=== PATIENT | female | born 2000 | race Caucasian/White ===

== ENCOUNTER 2019-01-17 01:45 | Emergency (ER) | payer SELFPAY ==
[2019-01-17] MEDS ORDERED: Albuterol/Ipratropium 3.0-0.5 MG/3 ML Neb Soln ONE (01:46)
[2019-01-17] MEDS ORDERED: Albuterol/Ipratropium 3.0-0.5 MG/3 ML Neb Soln NEB ONE ×2 (01:51→02:39)
[2019-01-17] MEDS ORDERED: methylPREDNISolone Sodium Succinate 125 MG/2 ML SDV IM ONE (01:57)
--- NOTE | 2019-01-17 02:02 | EDM.PDOC ---
ED HPI GENERAL MEDICAL PROBLEM - General Chief Complaint: Respiratory Problem Stated Complaint: SOB Time Seen by Provider: 01/17/19 01:51 - History of Present Illness INITIAL COMMENTS - FREE TEXT/NARRATIVE: HISTORY AND PHYSICAL: History of present illness: The patient is a 18-year-old female with a known history of asthma was here visiting from [place] and says that she has felt more short of breath and has had a cough productive of phlegm but the last 36 hours. The patient shows that she has an inhaler and nebulizer treatments at home and told nursing that she just neglected to bring that with her on this trip. On my evaluation with her she stated that she ran out of her prescription and did not refill it and then made the trip here. She denies smoking and any drug use and has not had a fever but has had some nausea and some loose stools. She has no abdominal pain and feels short of breath and feels like she is wheezing. She has been eating and drinking normally and denies Review of systems: As per history of present illness and below otherwise all systems reviewed and negative. Past medical history: As per history of present illness and as reviewed below otherwise noncontributory. Surgical history: As per history of present illness and as reviewed below otherwise noncontributory. Social history: No reported history of drug or alcohol abuse. Family history: As per history of present illness and as reviewed below otherwise noncontributory. Physical exam: General: Well-developed well-nourished mildly overweight female who is nontoxic and vital signs are noted by me. She is not breathless on my evaluation and she is currently on a DuoNeb HEENT: Atraumatic, normocephalic, pupils reactive, negative for conjunctival pallor or scleral icterus, mucous membranes moist, throat clear, neck supple, nontender, trachea midline. Lungs: Clear to auscultation with expiratory wheezing right greater than left side but no worker breathing or stridor, breath sounds equal bilaterally, chest nontender. Heart: S1S2, regular rhythm and tachycardic rate on my evaluation Abdomen: Soft, nondistended, nontender. NABS Pelvis: Deferred Genitourinary: Deferred. Rectal: Deferred. Extremities: Atraumatic, negative for cords or calf pain. Neurovascular unremarkable. Neuro: Awake, alert, oriented. Cranial nerves II through XII unremarkable. Cerebellum unremarkable. Motor and sensory unremarkable throughout. Exam nonfocal. Diagnostics: Chest x-ray influenza Therapeutics: Snow bowens Solu-Medrol spacer and spacer teaching After chintano kwan patient's O2 sat is 95% and she is moving air much better still with some fine expiratory wheezing throughout all lung cline. She says she does feel better and she is now telling me that she is staying with her boyfriend's sister while visiting here and she is being exposed to a dog which she is allergic to which she thinks is the trigger for her asthma attack. Her boyfriend also smokes marijuana but she says she is used to that smell Impression: Acute asthma exacerbation Definitive disposition and diagnosis as appropriate pending reevaluation and review of above. mid chest Pain Score (Numeric/FACES): 8 - Related Data Allergies Allergy/AdvReac Type Severity Reaction Status Date / Time No Known Allergies Allergy Verified 01/17/19 01:53 Home Meds: Home Meds Albuterol Sulfate 1 ampule INH ASDIRECTED PRN 01/17/19 [History] Albuterol [Ventolin HFA] 2 puff INH ASDIRECTED PRN 01/17/19 [History] Fluticasone/Salmeterol [Advair 250-50 Diskus] 1 each INH ASDIRECTED 01/17/19 [ History] Montelukast [Singulair] 10 mg PO DAILY 01/17/19 [History] Past Medical History Respiratory History: Reports: Asthma Neurological History: Reports: Other (See Below) Other Neuro History: pseudotumor cerebri (Intercranial HTN) Social & Family History - Family History Family Medical History: Noncontributory - Tobacco Use Smoking Status *Q: Never Smoker - Caffeine Use Caffeine Use: Reports: None - Recreational Drug Use Recreational Drug Use: No ED ROS GENERAL - Review of Systems Review Of Systems: ROS reveals no pertinent complaints other than HPI. ED EXAM, GENERAL - Physical Exam Exam: See Below (See dictation) Course - Vital Signs Last Recorded V/S: Last Vital Signs Temp 36.3 C 01/17/19 01:49 Pulse 130 H 01/17/19 02:37 Resp 24 H 01/17/19 01:49 BP 120/84 01/17/19 01:49 Pulse Ox 96 01/17/19 02:37 - Orders/Labs/Meds Orders: Active Orders 24 hr Category Date Time Status EKG Documentation Completion [RC] STAT Care 01/17/19 02:31 Active RT Aerosol Therapy [RC] ASDIRECTED Care 01/17/19 01:51 Active RT Aerosol Therapy [RC] ASDIRECTED Care 01/17/19 02:39 Ordered Meds: Medications Discontinued Medications Generic Name Dose Route Start Last Admin Trade Name Gemma PRN Reason Stop Dose Admin Albuterol/Ipratropium Confirm 01/17/19 01:46 01/17/19 01:52 Duoneb 3.0-0.5 Mg/3 Ml Administered 01/17/19 01:47 Not Given Dose 3 ml .ROUTE .STK-MED ONE Albuterol/Ipratropium 3 ml 01/17/19 01:51 01/17/19 01:52 Duoneb 3.0-0.5 Mg/3 Ml NEB 01/17/19 01:52 3 ml ONETIME ONE Administration Albuterol/Ipratropium 3 ml 01/17/19 02:39 Duoneb 3.0-0.5 Mg/3 Ml NEB 01/17/19 02:40 ONETIME ONE Methylprednisolone Sodium Succinate 125 mg 01/17/19 01:57 01/17/19 02:03 Solu-Medrol IM 01/17/19 01:58 125 mg ONETIME ONE Administration Departure - Departure Time of Disposition: 02:41 Disposition: Home, Self-Care 01 Condition: Good Clinical Impression: Acute asthma - Discharge Information Forms: ED Department Discharge Additional Instructions: The following information is given to patients seen in the emergency department who are being discharged to home. This information is to outline your options for follow-up care. We provide all patients seen in our emergency department with a follow-up referral. The need for follow-up, as well as the timing and circumstances, are variable depending upon the specifics of your emergency department visit. If you don't have a primary care physician on staff, we will provide you with a referral. We always advise you to contact your personal physician following an emergency department visit to inform them of the circumstance of the visit and for follow-up with them and/or the need for any referrals to a consulting specialist. The emergency department will also refer you to a specialist when appropriate. This referral assures that you have the opportunity for followup care with a specialist. All of these measure are taken in an effort to provide you with optimal care, which includes your followup. Under all circumstances we always encourage you to contact your private physician who remains a resource for coordinating your care. When calling for followup care, please make the office aware that this follow-up is from your recent emergency room visit. If for any reason you are refused follow-up, please contact the [facility] emergency department at and ask to speak to the emergency department charge nurse. [facility] Primary care- Internal Medicine and Family [address] [address] Push hydration and try to avoid triggers for your asthma as much as possible. Use the Ventolin inherently you've been prescribed with the spacer you are given here in the ED 1-2 puffs every 6 hours for the next 24 hours and then 1-2 puffs every 6 hours as needed for shortness of breath. Please take the prednisone as prescribed and return to ER as needed as discussed. He may follow- up with one of our providers in the clinic using resources given to above as you choose or with your provider at home for reevaluation and further care. - My Orders Last 24 Hours: My Active Orders 01/17/19 01:51 RT Aerosol Therapy [RC] ASDIRECTED 01/17/19 02:31 EKG Documentation Completion [RC] STAT 01/17/19 02:39 RT Aerosol Therapy [RC] ASDIRECTED - Assessment/Plan Last 24 Hours: My Active Orders 01/17/19 01:51 RT Aerosol Therapy [RC] ASDIRECTED 01/17/19 02:31 EKG Documentation Completion [RC] STAT 01/17/19 02:39 RT Aerosol Therapy [RC] ASDIRECTED
--- NOTE | 2019-01-17 02:35 | CR ---
Indication: Shortness of breath Technique: Chest 2 views Comparison: None Findings/Impression: Cardiovascular and mediastinum: Heart size and vasculature are normal in caliber and appearance. Mediastinum is within normal limits. Lungs and pleural spaces: No consolidation or pleural effusions. Bones and soft tissues: No significant findings. Dictated by Mandeep Beck MD @ 01/17/2019 2:34:04 AM Dictated by: Mandeep Beck MD @ 01/17/2019 02:34:09 (Electronically Signed)
== END 2019-01-17 02:55 | disposition home or self-care (01) ==
LOC: MW.ED 01:45
DX: J45.901 Unspecified asthma with (acute) exacerbation (principal); Z79.51 Long term (current) use of inhaled steroids; Z79.899 Other long term (current) drug therapy
CPT/HCPCS: 71046; 87804; 93005; 96372; 99285; J2930; 99284; J7620-GY